=== PATIENT | male | born 1980 | race Caucasian/White ===

== ENCOUNTER 2018-12-23 15:00 | Emergency (ER) | payer OTHER ==
[2018-12-23 15:13] VITALS: BP 130/76
[2018-12-23] MEDS ORDERED: diphenhydrAMINE 50 MG/ML SDV IM ONE (15:49)
[2018-12-23] MEDS ORDERED: Ondansetron 4 MG Tab.DIS PO ONE (15:50)
[2018-12-23] MEDS ORDERED: Sucralfate Suspension 1 GM/10 ML Cup PO ONE (15:51)
--- NOTE | 2018-12-23 16:06 | EDM.PDOC ---
ED HPI GENERAL MEDICAL PROBLEM - General Chief Complaint: Headache Stated Complaint: migraine Time Seen by Provider: 12/23/18 15:27 Source of Information: Reports: Patient History Limitations: Reports: No Limitations - History of Present Illness INITIAL COMMENTS - FREE TEXT/NARRATIVE: Patient is a 38-year-old who presents to the ER with a 2 week history of migraine headaches patient was scheduled for Botox November 25 which he missed his appointment so he's been a month without the Botox and that has helped him in the past. This time he states that his migraine 05/05 but he does not appear to originate in significant distress. I went ahead and reviewed [place] and [place] drug use and both were negative this was done with Katelyn pollack Pharm.D. Onset: Gradual Duration: Week(s): (2 weeks), Getting Worse Location: Reports: Head, Abdomen (History of hiatal hernia patient given Carafate 1 g) Quality: Reports: Throbbing Severity: Moderate Improves with: Reports: Rest Worsens with: Reports: Movement Context: Reports: Activity Associated Symptoms: Reports: Headaches, Other (Patient has history of seizure disorder with anti-seizure medications valproic acid but has been off for a while secondary to secondary effects with Nexium) Posterior Occipital Headache Pain Score (Numeric/FACES): 9 - Related Data Allergies Allergy/AdvReac Type Severity Reaction Status Date / Time acetaminophen Allergy Nose Bleeds Verified 12/23/18 15:03 Benzoate Analogues Allergy Anaphylactic Verified 12/23/18 15:02 Shock ibuprofen Allergy Nose Bleeds Verified 12/23/18 15:03 ketorolac [From Toradol] Allergy Other Verified 12/26/16 15:20 lidocaine Allergy Anaphylactic Verified 12/23/18 15:02 Shock meperidine [From Demerol] Allergy Anaphylactic Verified 12/23/18 15:02 Shock contrast dye Allergy Other Uncoded 12/26/16 15:20 Home Meds: Home Meds Fludrocortisone [Florinef] 1 tab PO TID PRN 12/23/18 [History] Midodrine 5 mg PO DAILY 12/23/18 [History] Onabotulinumtoxina [Botox] 200 unit IJ Q90D 12/23/18 [History] Past Medical History Cardiovascular History: Reports: Afib, Other (See Below) Other Cardiovascular History: link monitor in chest? Musculoskeletal History: Reports: Back Pain, Chronic, Other (See Below) Other Musculoskeletal History: sciatica. bone spurs in back. meniscus tear in knee. bakers cyst to back of knees Neurological History: Reports: Seizure ED ROS GENERAL - Review of Systems Review Of Systems: See Below Constitutional: Reports: No Symptoms HEENT: Reports: Eye Pain Respiratory: Reports: No Symptoms Cardiovascular: Reports: No Symptoms Endocrine: Reports: No Symptoms GI/Abdominal: Reports: No Symptoms, Other (History of diaphragmatic hernia) Musculoskeletal: Reports: Neck Pain Skin: Reports: No Symptoms Neurological: Reports: No Symptoms Psychiatric: Reports: No Symptoms Hematologic/Lymphatic: Reports: No Symptoms Immunologic: Reports: No Symptoms - Physical Exam Exam: See Below Exam Limited By: No Limitations General Appearance: Alert, WD/WN, No Apparent Distress Ears: Normal External Exam, Normal Canal, Hearing Grossly Normal, Normal TMs Nose: Normal Inspection, Normal Mucosa, No Blood Throat/Mouth: Normal Inspection, Normal Lips, Normal Teeth, Normal Gums, Normal Oropharynx, Normal Voice, No Airway Compromise Head Exam: Atraumatic, Normocephalic Neck: Normal Inspection, Supple, Non-Tender, Full Range of Motion Respiratory/Chest: No Respiratory Distress, Lungs Clear, Normal Breath Sounds, No Accessory Muscle Use, Chest Non-Tender Cardiovascular: Normal Peripheral Pulses, Regular Rate, Rhythm, No Edema, No Gallop, No JVD, No Murmur, No Rub GI/Abdominal: Other (History of hiatal hernia) (Male) Exam: Deferred Rectal (Males) Exam: Deferred Neuro Exam (Abbreviated): Alert, Oriented, CN II-XII Intact, Normal Cognition, Normal Gait, Normal Reflexes, No Motor/Sensory Deficits, Other (Photophobia) Back Exam: Normal Inspection, Full Range of Motion, NT Extremities: Normal Inspection, Normal Range of Motion, Non-Tender, No Pedal Edema, Normal Capillary Refill Psychiatric: Normal Affect, Normal Mood Skin Exam: Warm, Dry, Intact, Normal Color, No Rash Course - Vital Signs Last Recorded V/S: Last Vital Signs Temp 98.3 F 12/23/18 15:10 Pulse 94 12/23/18 15:10 Resp 18 12/23/18 15:10 BP 130/76 12/23/18 15:10 Pulse Ox 95 12/23/18 15:10 - Orders/Labs/Meds Meds: Medications Discontinued Medications Generic Name Dose Route Start Last Admin Trade Name Marilu PRN Reason Stop Dose Admin Diphenhydramine HCl 50 mg 12/23/18 15:49 Benadryl IM 12/23/18 15:50 ONETIME ONE Ondansetron HCl 4 mg 12/23/18 15:50 Zofran Odt PO 12/23/18 15:51 ONETIME ONE Sucralfate 1 gm 12/23/18 15:51 Carafate PO 12/23/18 15:52 ONETIME ONE Departure - Departure Time of Disposition: 16:11 Disposition: Home, Self-Care 01 Condition: Fair Clinical Impression: Migraine headache, Migraine - Discharge Information *PRESCRIPTION DRUG MONITORING PROGRAM REVIEWED*: Yes *COPY OF PRESCRIPTION DRUG MONITORING REPORT IN PATIENT [place]: No Referrals: PCP,Unknown [Ordering Only Provider] - Additional Instructions: Patient was seen evaluated and will go ahead and treat with Benadryl and omeprazole plus Carafate in the attempt to diminish the migraines we will go ahead and send him home he is to follow-up with neurology for Botox treatment
== END 2018-12-23 17:20 | disposition home or self-care (01) ==
LOC: LL.ED 15:00
DX: G43.909 Migraine, unspecified, not intractable, without status migrainosus (principal); I48.91 Unspecified atrial fibrillation; Z88.6 Allergy status to analgesic agent; Z91.041 Radiographic dye allergy status; Z88.8 Allergy status to other drugs, medicaments and biological substances; Z79.899 Other long term (current) drug therapy
CPT/HCPCS: 96372; 99283; A9270-GY; J1200

== ENCOUNTER 2019-05-24 11:14 | Emergency (ER) | payer OTHER ==
[2019-05-24] MEDS ORDERED: Famotidine 20 MG/2 ML SDV IVPUSH ONE (11:18)
--- NOTE | 2019-05-24 11:20 | EDM.PDOC ---
ED HPI GENERAL MEDICAL PROBLEM - General Chief Complaint: Headache Stated Complaint: Headache, chest pressure, paresthesias Time Seen by Provider: 05/24/19 11:14 Source of Information: Reports: Patient, Old Records ([facility] EMR. No paper hospital chart available.) History Limitations: Reports: No Limitations - History of Present Illness INITIAL COMMENTS - FREE TEXT/NARRATIVE: The patient was brought to the emergency room via private automobile by a coworker for evaluation of multiple nonspecific complaints. The patient apparently woke up this morning at about 06:30 a.m. with sensation of fogginess , left-sided neck and jaw stiffness/paresthesias, right-sided frontal/ retroauricular and right occipital headache, which he rates at 9/10. Note distant history of previous CVA and migraine headaches as below. Patient also complains of 8/10 retrosternal chest pressure associated with some dyspnea with symptoms starting with the above symptoms. The patient denies any heart flutter , dizziness, orthostasis, orthopnea, diaphoresis, paresthesias, recent decreased exercise tolerance, or any other anginal-type symptoms. No history of recent visual changes, diplopia, change in mental status, or other change in neurological status. No recent history of abdominal pain, heartburn, nausea, diarrhea, melena, gross hematochezia, or any food intolerance, including fatty foods, etc.. He denies any gross hematuria, colic, or other UTI symptoms. The patient also denies any recent fever, cough, wheezing, dyspnea, etc.. Symptoms were refractory to 800 mg of ibuprofen taken at 08:30 a.m. this morning. Onset: Today, Sudden Onset Date: 05/24/19 Onset Time: 06:30 Duration: Constant, Getting Worse Location: Reports: Head, Face, Chest. Denies: Neck, Abdomen, Back, Upper Extremity, Left, Upper Extremity, Right, Lower Extremity, Left, Lower Extremity , Right Quality: Reports: Pressure, Same as Previous Episode, Throbbing Severity: Severe Improves with: Reports: None Worsens with: Reports: None Context: Reports: Other (As above). Denies: Sick Contact, Trauma Associated Symptoms: Reports: Chest Pain, Headaches. Denies: Confusion, Cough, Diaphoresis, Fever/Chills, Loss of Appetite, Malaise, Nausea/Vomiting, Seizure, Shortness of Breath, Syncope, Weakness Treatments [employer]: Reports: NSAIDS - Related Data Allergies Allergy/AdvReac Type Severity Reaction Status Date / Time Benzoate Analogues Allergy Anaphylactic Verified 05/24/19 12:07 Shock ketorolac [From Toradol] Allergy Anaphylactic Verified 05/24/19 12:07 Shock latex Allergy Burning Verified 05/24/19 12:08 lidocaine Allergy Anaphylactic Verified 05/24/19 12:07 Shock meperidine [From Demerol] Allergy Anaphylactic Verified 05/24/19 12:07 Shock acetaminophen AdvReac Nose Bleeds Verified 05/24/19 12:07 ibuprofen AdvReac Nose Bleeds Verified 05/24/19 12:07 contrast dye Allergy Anaphylactic Uncoded 05/24/19 12:07 Shock Home Meds: Home Meds Fludrocortisone [Florinef] 1 tab PO TID PRN 12/23/18 [History] Midodrine 5 mg PO DAILY PRN 12/23/18 [History] Onabotulinumtoxina [Botox] 200 unit IJ Q90D 12/23/18 [History] Ibuprofen 800 mg PO Q6HR PRN 05/24/19 [History] Methocarbamol [Robaxin-750] 4 - 6 tab PO ASDIRECTED 05/24/19 [History] Past Medical History HEENT History: Reports: Allergic Rhinitis, Impaired Vision, Other (See Below). Denies: Cataract, Glaucoma, Hard of Hearing, Macular Degeneration, Otitis Media , Retinal Detachment Other HEENT History: Patient wears glasses. Vocal cord polyps. Nasal fracture requiring reconstruction in 1995 as below. Cardiovascular History: Reports: Afib, Arrhythmia, Syncope, Other (See Below). Denies: Aneurysm, Blood Clots/VTE/DVT, CAD, Heart Murmur, High Cholesterol, Hypertension, [place], Pacemaker Other Cardiovascular History: Possible history of atrial fibrillation with ablation recommended? Note loop event monitor as below. Cardiac arrest secondary to Toradol exposure (?) with CPR required. Recurrent syncope of unknown etiology with negative workup as below, however possibly secondary to intermittent hypotension and/or cardiac arrhythmia. Respiratory History: Reports: Intubation, Previous, Pneumothorax, Other (See Below). Denies: Asthma, COPD, Intubation, Difficult, PE, Sleep Apnea, TB Other Respiratory History: Spontaneous right sided pneumothorax at about age 22 possibly secondary to his illness drug use with no chest tube required. Gastrointestinal History: Reports: Cholelithiasis, Colon Polyp, GERD, Hiatal Hernia, Other (See Below). Denies: Celiac Disease, Chronic Constipation, Chronic Diarrhea, Fecal Incontinence, Gastritis, GI Bleed, Hepatitis, Inflammatory Bowel Disease, Irritable Bowel Syndrome, Jaundice, Pancreatitis, PUD Other Gastrointestinal History: Multiple excisions of unknown type of colonic polyps last in 2012 as below. Genitourinary History: Reports: STD, Other (See Below). Denies: Acute Renal Failure, Chronic Renal Insuffiency, Renal Calculus, Retention, Urinary, Urinary Incontinence, UTI, Recurrent Other Genitourinary History: Chlamydia treatment in 2009. Musculoskeletal History: Reports: Back Pain, Chronic, Fracture, Osteoarthritis, Other (See Below). Denies: Arthritis, Gout, RA, SLE Other Musculoskeletal History: History of sciatica. Jimenez's cyst his knees with history of meniscal tears with no surgery to this point. Right wrist fracture at age 6. Neurological History: Reports: Concussion, CVA, Head Trauma, Seizure, Other ( See Below). Denies: Cerebral Aneurysms, MS, Neuropathy, Peripheral, Parkinson's , TIA, Vertigo Other Neuro History: History of multiple previous head concussions. 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 Refractory chronic migraine headaches. Psychiatric History: Reports: Addiction, Anxiety, Depression, Other (See Below) . Denies: Abuse, Victim of, ADD, ADHD, Psych Hospitalization(s), PTSD, Suicide Attempt, Suicidal Ideation Other Psychiatric History: History of illicit drug use, including cocaine use between ages 20 and 21 and 5 year history of intermittent methamphetamine use with last use of methamphetamine in 2012. No previous inpatient treatment and/ or IV drug use by patient history. Endocrine/Metabolic History: Reports: Other (See Below). Denies: Diabetes, Type I, Diabetes, Type II, Diabetes Mellitus, Type 3c, Hypothyroidism, IDDM Other Endocrine/Metabolic History: Hypo-and hyperglycemic episodes with no treatment required Hematologic History: Denies: Anemia, Blood Transfusion(s), Iron Deficiency Immunologic History: Reports: None. Denies: AIDS, HIV, SLE Oncologic (Cancer) History: Reports: None. Denies: Basal Cell Carcinoma, Colon , Hodgkin's Lymphoma, Leukemia, Lymphoma, Malignant Melanoma, Non-Hodgkin's Lymphoma, Squamous Cell Carcinoma Dermatologic History: Reports: None. Denies: Eczema, Psoriasis - Infectious Disease History Infectious Disease History: Reports: Other (See Below). Denies: C-Difficile, Chicken Pox, Measles, Meningitis, Mononucleosis, MRSA, Mumps, Pertussis ( Whooping Cough), Rheumatic Fever, Rubella, Scarlet Fever, Shingles, TB, VRE Other Infectious Disease History: Chlamydia as above. - Past Surgical History Head Surgeries/Procedures: Reports: None HEENT Surgical History: Reports: Naso-Sinus Surgery, Oral Surgery, Other (See Below). Denies: Adenoidectomy, Cataract Surgery, Detached Retina, Eye Surgery, Laser Surgery, LASIK, Myringotomy w Tube(s), Tonsillectomy Other HEENT Surgeries/Procedures: Nasal reconstruction in 1995. [place] teeth extraction times 4 in 1994. Cardiovascular Surgical History: Reports: Other (See Below). Denies: Varicose Other Cardiovascular Surgeries/Procedures: Loop event monitor from 2015 through October 2017. Respiratory Surgical History: Reports: None. Denies: Thoracentesis GI Surgical History: Reports: Cholecystectomy, Colonoscopy, EGD, Polypectomy, Other (See Below). Denies: Appendectomy, Hernia, Inguinal, Hernia Repair/Other Other GI Surgeries/Procedures: Multiple previous EGDs last in 2014. Multiple previous colonoscopies including polyp excisions with last excision in 2012. Laparoscopic cholecystectomy in 2010. Male Surgical History: Reports: Circumcision, Other (See Below). Denies: Vasectomy Other Male Surgeries/Procedures: Circumcision as an infant. Neurological Surgical History: Reports: None. Denies: C-Spine, Discectomy, Laminectomy, Lumbar Spine, Sacral Spine, Spinal Fusion, Thoracic Spine, Vertebroplasty Musculoskeletal Surgical History: Reports: Other (See Below). Denies: Arthroscopic Knee, Arthroscopic Procedure, Carpal Tunnel, Ganglion Cyst, Joint Replacement, ORIF, Shoulder Surgery Other Musculoskeletal Surgeries/Procedures:: Excision of benign tumor from the left hand in 2013. Oncologic Surgical History: Reports: None Dermatological Surgical History: Reports: None - Past Imaging History Past Imaging History: Reports: MRI (Knees bilaterally- records not available.), Stress Testing (Apparent negative exercise cardiac stress test 2 in 2009 and 2010.), Other (See Below) (Negative tilt table test and 2009 2012) Social & Family History - Tobacco Use Smoking Status *Q: Never Smoker Used Tobacco, but Quit: No Smoking Cessation Information Provided To Patient: No Second Hand Smoke Exposure: No Second Hand Smoke Education Provided: No - Caffeine Use Caffeine Use: Reports: Coffee (2 cups per day), Tea (1 glass per month). Denies : Energy Drinks, Soda - Alcohol Use Alcohol Use History: Yes Days Per Week of Alcohol Use: 0 Number of Drinks Per Day: 1 Number of Drinks Per Day Comment: Usually wine about 2 times per month. No previous DWIs, problems with alcohol abuse, etc. Total Drinks Per Week: 0 Alcohol Use in Last Twelve Months: Yes - Recreational Drug Use Recreational Drug Use: Yes Drug Use in Last 12 Months: No Recreational Drug Type: Reports: Amphetamines (Speed), Cocaine, Methamphetamine , Other (see below) (Illicit drug use as above). Denies: Heroin, Inhalants ( Glues, Solvents, Aerosols), LSD (Acid), Marijuana/Hashish, Morphine, Oxycodone - Living Situation & Occupation Living situation: Reports: Single, Alone Occupation: Employed ([employer] in [place] shop) ED ROS GENERAL - Review of Systems Review Of Systems: ROS reveals no pertinent complaints other than HPI. ED EXAM, NEURO - Physical Exam Exam: See Below Exam Limited By: No Limitations General Appearance: Alert, WD/WN, No Apparent Distress, Anxious (Moderate) Eye Exam: Bilateral Eye: EOMI, Normal Fundi, Normal Inspection (No nystagmus), PERRL Ears: Normal External Exam, Normal Canal, Hearing Grossly Normal, Normal TMs Nose: Normal Inspection, Normal Mucosa, No Blood Throat/Mouth: Normal Inspection, Normal Lips, Normal Teeth, Normal Gums, Normal Oropharynx, Normal Voice, No Airway Compromise. No: Dysphagia, Perioral Cyanosis Head Exam: Atraumatic, Normocephalic. No: Facial Swelling, Facial Tenderness, Sinus Tenderness Neck: Normal Inspection, Supple, Non-Tender, Full Range of Motion. No: Carotid Bruit, Lymphadenopathy (L), Lymphadenopathy (R), Thyromegaly Respiratory/Chest: No Respiratory Distress, Lungs Clear, Normal Breath Sounds, No Accessory Muscle Use, Chest Non-Tender. No: Pleural Rub, Retractions Cardiovascular: Normal Peripheral Pulses, Regular Rate, Rhythm, No Edema, No Gallop, No JVD, No Murmur, No Rub. No: Gallop/S3, Gallop/S4, Friction Rub GI/Abdominal: Normal Bowel Sounds, Soft, Non-Tender, No Organomegaly, No Distention, No Abnormal Bruit, No Mass. No: Guarding (Male) Exam: Deferred Rectal (Males) Exam: Deferred Neurological: Alert, Normal Mood/Affect, Normal Dorsiflexion, CN II-XII Intact, Normal Plantar Flexion, Normal Gait, Normal Reflexes (Negative Babinski's, finger to nose, and pronator rotation tests. No evidence of facial paresis, tongue deviation, orthostasis, etc.. Excellent reverse thought processes.), No Motor/Sensory Deficits, Oriented x 3 Back Exam: Normal Inspection, Full Range of Motion. No: CVA Tenderness (L), CVA Tenderness (R), Muscle Spasm Extremities: Normal Inspection, Normal Range of Motion, Non-Tender, No Pedal Edema, Normal Capillary Refill. No: Alia's Sign Psychiatric: Anxious (Moderate), Depressed Mood (Moderate), Other (No suicidal ideation, etc.). No: Tearful Skin Exam: Warm, Dry, Intact, Normal Color, No Rash, Tattoo(s) (Multiple). No: Diaphoretic, Wound/Incision EKG INTERPRETATION EKG Date: 05/24/19 Time: 11:29 Rhythm: Other (Mild sinus bradycardia) Rate (Beats/Min): 58 [place]: Normal (Neutral) P-Wave: Present QRS: Normal (2.09 seconds) ST-T: Normal (Nonspecific ST changes) QT: Normal WI/PQ Interval: 0.15 seconds representing a resolved/improved short WI interval with no delta waves noted. Pulmonary hypertension by EKG Comparison: Change From Previous EKG (As above since last EKG on 12/26/16) EKG Interpretation Comments: 1. No acute ischemic changes 2. History of short WI interval 3. Pulmonary hypertension by EKG Course - Vital Signs Last Recorded V/S: Last Vital Signs Temp 36.6 C 05/24/19 13:27 Pulse 77 05/24/19 13:27 Resp 17 05/24/19 13:27 BP 126/85 05/24/19 13:27 Pulse Ox 100 05/24/19 13:27 Vital Signs - 24 hr 05/24/19 05/24/19 05/24/19 11:15 11:24 11:39 Temperature [ 36.4 C 36.4 C Temporal] Pulse, 74 70 73 Peripheral [ Right Pulse Oximetry] Respiratory 16 14 14 Rate Blood Pressure 138/110 H 119/81 115/83 [Left Upper Arm ] O2 Sat by Pulse 94 L 100 100 Oximetry 05/24/19 05/24/19 05/24/19 11:54 12:09 12:25 Temperature [ 36.4 C Temporal] Pulse, 59 L 63 54 L Peripheral [ Right Pulse Oximetry] Respiratory 12 12 10 L Rate Blood Pressure 125/86 117/85 123/86 [Left Upper Arm ] O2 Sat by Pulse 100 100 100 Oximetry 05/24/19 05/24/19 12:54 13:27 Temperature [ 36.6 C Temporal] Pulse, 60 77 Peripheral [ Right Pulse Oximetry] Respiratory 12 17 Rate Blood Pressure 123/86 126/85 [Left Upper Arm ] O2 Sat by Pulse 100 100 Oximetry - Orders/Labs/Meds Orders: Active Orders 24 hr Category Date Time Status Blood Glucose Check, Bedside [RC] STAT Care 05/24/19 11:18 Active Cardiac Monitoring [RC] STAT Care 05/24/19 11:18 Active EKG Documentation Completion [RC] ASDIRECTED Care 05/24/19 11:18 Active NIH Stroke Scale [RC] ASDIRECTED Care 05/24/19 11:18 Active Oxygen Therapy, ED [RC] PRN Care 05/24/19 11:18 Active Peripheral IV Care [RC] . DIRECTED Care 05/24/19 11:18 Active Pulse Oximetry [RC] CONTINUOUS Care 05/24/19 11:18 Active Up With Assistance [RC] ASDIRECTED Care 05/24/19 11:18 Active Vital Signs [RC] PFP Care 05/24/19 11:18 Active Nothing per Oral Now Diet [DIET] Diet 05/24/19 Breakfast Active Chest 1V Frontal [CR] Stat Exams 05/24/19 11:18 Taken Head wo Cont [CT] Stat Exams 05/24/19 11:18 Taken CULTURE URINE [RM] Routine Lab 05/24/19 11:41 Ordered DRUG SCREEN, URINE [URCHEM] Stat Lab 05/24/19 11:41 Ordered PROLACTIN [REF] Stat Lab 05/24/19 11:25 Received URINALYSIS W/MICROSCOPIC [UA W/MICROSCOPIC] [URIN] Lab 05/24/19 11:41 Ordered Routine Sodium Chloride 0.9% [Saline Flush] Med 05/24/19 11:18 Active 10 ml FLUSH ASDIRECTED PRN Obtain Past Medical Record [OM.PC] Stat Oth 05/24/19 11:18 Active Peripheral IV Insertion Adult [OM.PC] Stat Ot 05/24/19 11:18 Ordered Resuscitation Status Stat Resus Stat 05/24/19 11:18 Ordered Medication Orders Sodium Chloride (Saline Flush) 10 ml FLUSH ASDIRECTED PRN PRN Reason: Keep Vein Open Last Admin: 05/24/19 13:36 Dose: 10 ml Admin: 05/24/19 13:33 Dose: 10 ml Admin: 05/24/19 13:32 Dose: 10 ml Admin: 05/24/19 11:34 Dose: 10 ml Labs: Laboratory Tests 05/24/19 05/24/19 05/24/19 Range/Units 11:18 11:25 11:25 WBC 3.8 L (4.0-10.2) K/uL RBC 4.03 L (4.33-5.41) M/uL Hgb 13.0 L (13.1-16.8) g/dL Hct 39.0 (39.0-49.0) % MCV 96.8 (84.0-98.0) fL MCH 32.3 (28.2-33.3) pg MCHC 33.3 (31.7-36.0) g/dL RDW 12.5 (11.2-14.1) % Plt Count 213 (150-350) K/uL Neut % (Auto) 45.2 (45.0-80.0) % Lymph % (Auto) 37.2 (10.0-50.0) % [place] % (Auto) 13.3 (2.0-14.0) % Eos % (Auto) 3.2 (0.0-5.0) % Baso % (Auto) 1.1 (0.0-2.0) % Neut # (Auto) 1.70 (1.40-7.00) K/uL Lymph # (Auto) 1.40 (0.50-3.50) K/uL [place] # (Auto) 0.50 (0.00-1.00) K/uL Eos # (Auto) 0.12 (0.00-0.50) K/uL Baso # (Auto) 0.04 (0.00-0.20) K/uL PT 10.4 (9.5-12.0) SEC INR 1.0 APTT 30.1 (21.0-31.3) SEC D-Dimer, Quantitative (0-400) ng/mL Sodium (136-145) mmol/L Potassium (3.5-5.1) mmol/L Chloride (98-107) mmol/L Carbon Dioxide (21.0-32.0) mmol/L BUN (7-18) mg/dL Creatinine (0.51-1.17) mg/dL Est Cr Clr Drug Dosing Estimated GFR (MDRD) mL/min Glucose (74-106) mg/dL Lactic Acid 1.0 (0.4-2.0) mmol/L Uric Acid (2.6-7.2) mg/dL Calcium (8.5-10.1) mg/dL Magnesium (1.8-2.4) mg/dL Total Bilirubin (0.2-1.0) mg/dL AST (15-37) U/L ALT (12-78) U/L Alkaline Phosphatase (46-116) IU/L Creatine Kinase (26-308) U/L Creatine Kinase Index (0.0-2.5) % CK-MB (CK-2) (0.00-3.60) ng/mL Troponin I (0.000-0.056) ng/mL NT-Pro-B Natriuret Pep (0-125) pg/mL Total Protein (6.4-8.2) g/dL Albumin (3.4-5.0) g/dL TSH, Ultra Sensitive (0.358-3.740) mIU/mL 05/24/19 05/24/19 Range/Units 11:25 11:25 WBC (4.0-10.2) K/uL RBC (4.33-5.41) M/uL Hgb (13.1-16.8) g/dL Hct (39.0-49.0) % MCV (84.0-98.0) fL MCH (28.2-33.3) pg MCHC (31.7-36.0) g/dL RDW (11.2-14.1) % Plt Count (150-350) K/uL Neut % (Auto) (45.0-80.0) % Lymph % (Auto) (10.0-50.0) % [place] % (Auto) (2.0-14.0) % Eos % (Auto) (0.0-5.0) % Baso % (Auto) (0.0-2.0) % Neut # (Auto) (1.40-7.00) K/uL Lymph # (Auto) (0.50-3.50) K/uL [place] # (Auto) (0.00-1.00) K/uL Eos # (Auto) (0.00-0.50) K/uL Baso # (Auto) (0.00-0.20) K/uL PT (9.5-12.0) SEC INR APTT (21.0-31.3) SEC D-Dimer, Quantitative 271 (0-400) ng/mL Sodium 139 (136-145) mmol/L Potassium 3.9 (3.5-5.1) mmol/L Chloride 103 (98-107) mmol/L Carbon Dioxide 32.5 H (21.0-32.0) mmol/L BUN 21 H (7-18) mg/dL Creatinine 0.82 (0.51-1.17) mg/dL Est Cr Clr Drug Dosing TNP Estimated GFR (MDRD) > 60 mL/min Glucose 90 (74-106) mg/dL Lactic Acid (0.4-2.0) mmol/L Uric Acid 4.4 (2.6-7.2) mg/dL Calcium 8.5 (8.5-10.1) mg/dL Magnesium 1.9 (1.8-2.4) mg/dL Total Bilirubin 1.0 (0.2-1.0) mg/dL AST 15 (15-37) U/L ALT 30 (12-78) U/L Alkaline Phosphatase 42 L (46-116) IU/L Creatine Kinase 138 (26-308) U/L Creatine Kinase Index 1.1 (0.0-2.5) % CK-MB (CK-2) 1.50 (0.00-3.60) ng/mL Troponin I 0.000 (0.000-0.056) ng/mL NT-Pro-B Natriuret Pep 6 (0-125) pg/mL Total Protein 7.3 (6.4-8.2) g/dL Albumin 3.9 (3.4-5.0) g/dL TSH, Ultra Sensitive 0.541 (0.358-3.740) mIU/mL Stat Accu-Chek of 118 mg percent. Meds: Medications Generic Name Dose Route Start Last Admin Trade Name Freq PRN Reason Stop Dose Admin Sodium Chloride 10 ml 05/24/19 11:18 05/24/19 13:36 Saline Flush FLUSH 10 ml ASDIRECTED PRN Administration Keep Vein Open Discontinued Medications Generic Name Dose Route Start Last Admin Trade Name Freq PRN Reason Stop Dose Admin Diphenhydramine HCl 50 mg 05/24/19 13:23 05/24/19 13:32 Benadryl IVPUSH 05/24/19 13:24 50 mg ONETIME ONE Administration Famotidine 40 mg 05/24/19 11:18 05/24/19 11:33 Pepcid IVPUSH 05/24/19 11:19 40 mg ONETIME ONE Administration Lorazepam 1 mg 05/24/19 13:23 05/24/19 13:32 Ativan IVPUSH 05/24/19 13:24 1 mg ONETIME ONE Administration Metoclopramide HCl 10 mg 05/24/19 13:24 05/24/19 13:32 Reglan IVPUSH 05/24/19 13:25 10 mg ONETIME ONE Administration - Radiology Interpretation Free Text/Narrative:: Plasma Center Technician shows normal sinus rhythm with heart rate in the 60s to 80s with no ectopy or arrhythmia. Chest x-ray, portable, shows evidence of borderline pulmonary obstructive disease with no cardiomegaly, CHF, pulmonary infiltrates, pneumothorax, etc. Telephone consultation at 11:55 AM with the radiology department at [facility]. Preliminary verbal report of noncontrast CT scan of the head was negative for acute changes. CT Results Date: 05/24/19 CT Results Time: 11:55 Departure - Departure Time of Disposition: 14:10 Disposition: Home, Self-Care 01 Condition: Good Clinical Impression: Chest pain, Migraine, Mixed anxiety depressive disorder, Epilepsy - Discharge Information *PRESCRIPTION DRUG MONITORING PROGRAM REVIEWED*: Not Applicable *COPY OF PRESCRIPTION DRUG MONITORING REPORT IN PATIENT [place]: Not Applicable Instructions: Migraine Headache, [id number], Nonspecific Chest Pain, Easy-to- Read, Angina Pectoris, [id number] Referrals: PCP,Unknown [Primary Care Provider] - Forms: ED Department Discharge, ED Return to Work/School Form Additional Instructions: 1. Contact your regular physician JARED as discussed for immediate recommended evaluation of your chest pain, headache, etc. as discussed. 2. Tylenol and/or OTC ibuprofen should be dosed by the patient's weight as needed./directed. (Tylenol at 10 mg/kg every 4 hours. Ibuprofen at 5-10 mg/kg every 6 hours). These medications may be staggered for 48-72 hours only, which essentially means that pain medication is being given every 2 hours. Today's weight is about 3. Ice packs to head and neck, dark and quiet room, etc. as directed until headache resolves. 4. Discuss possible additional preventative medications for your headaches with your regular provider. Consider OTC magnesium oxide 400 mg every day as headache prevention with diarrhea precautions with this medication as directed. Never initiate medications on your own, however, prior to discussing this with your regular provider. In addition, discuss possible reinitiation of your antidepressant medication, which would also be beneficial as migraine headache prevention. 5. Sedation precautions with no driving, etc. for 18 hours because of emergency room medications. 6. Work excuse- See Form 7. Immediately after this visit verify that your cellular telephone's voicemail has been activated and is empty. Also verify that your home telephone 's answering machine is operating properly and has space to receive messages. Note that it is sometimes necessary for us to be able to contact you at a later date to discuss your medical care. 8. Please remember that we are ALWAYS here for you and want to answer any questions you may have. Feel free to call the hospital any time and we call you back JARED. 9. Maintained 25-50 percent maximum exercise restriction until your cardiac status has been determined. You may not return to work until released by your regular provider, etc. - Problem List & Annotations (1) Migraine headache SNOMED Code(s): 57057925 Code(s): G43.909 - MIGRAINE, UNSP, NOT INTRACTABLE, WITHOUT STATUS MIGRAINOSUS Status: Acute Priority: High Current Visit: Yes Onset Date: 05/24/19 Annotation/Comment:: Secondary to patient's symptoms and previous medical history as above/below a stroke code was called in this facility by this provider shortly after his arrival to the emergency room. Symptoms much improved with treatment as above. Patient refused transfer to [facility] for possible MRI with distant history of CVA as above. No direct evidence of CVA today, however with probable symptoms more related to migraine equivalent and no current neurological deficits, etc.. Note nonspecific leukopenia. Qualifiers: Migraine type: without aura Status migrainosus presence: without status migrainosus Intractability: not intractable Qualified Code(s): G43.009 - Migraine without aura, not intractable, without status migrainosus (2) Chest pain SNOMED Code(s): 35059135 Code(s): R07.9 - CHEST PAIN, UNSPECIFIED Status: Acute Priority: High Current Visit: Yes Onset Date: 05/24/19 Annotation/Comment:: Note strong cardiac history as above with patient refusing admission and/or transfer to [facility] for further workup. Work excuse provided with close follow-up by regular providers as per discharge instructions. The risks and benefits of going home were extensively discussed, including the risk of , etc.. His symptoms were improved prior to discharge. The blood pressures were significantly improved prior to discharge without treatment. Qualifiers: Chest pain type: precordial pain Qualified Code(s): R07.2 - Precordial pain (3) Epilepsy SNOMED Code(s): 53994469 Code(s): G40.909 - EPILEPSY, UNSP, NOT INTRACTABLE, WITHOUT STATUS EPILEPTICUS Status: Chronic Priority: Medium Current Visit: Yes Annotation/Comment:: Note previous history of epilepsy of unknown type with discontinuation of his Depakote about 6 months ago by his history. No recent seizure activity since medication discontinuation, however. 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 Close follow-up by regular provider as per discharge instructions. Strong anxiety depression component to today's symptoms. Emotional support provided. Note previous history of illicit drug use. Patient unable to provide us with ordered urine specimen for drug screen, etc. - Problem List Review Problem List Initiated/Reviewed/Updated: Yes - My Orders Last 24 Hours: My Active Orders 05/24/19 11:18 Blood Glucose Check, Bedside [RC] STAT Cardiac Monitoring [RC] STAT EKG Documentation Completion [RC] ASDIRECTED NIH Stroke Scale [RC] ASDIRECTED Oxygen Therapy, ED [RC] PRN Peripheral IV Care [RC] . DIRECTED Pulse Oximetry [RC] CONTINUOUS Up With Assistance [RC] ASDIRECTED Vital Signs [RC] PFP Chest 1V Frontal [CR] Stat Head wo Cont [CT] Stat Sodium Chloride 0.9% [Saline Flush] 10 ml FLUSH ASDIRECTED PRN Obtain Past Medical Record [OM.PC] Stat Peripheral IV Insertion Adult [OM.PC] Stat Resuscitation Status Stat 05/24/19 11:25 PROLACTIN [REF] Stat 05/24/19 11:41 CULTURE URINE [RM] Routine DRUG SCREEN, URINE [URCHEM] Stat URINALYSIS W/MICROSCOPIC [UA W/MICROSCOPIC] [URIN] Routine 05/24/19 Breakfast Nothing per Oral Now Diet [DIET] - Assessment/Plan Last 24 Hours: My Active Orders 05/24/19 11:18 Blood Glucose Check, Bedside [RC] STAT Cardiac Monitoring [RC] STAT EKG Documentation Completion [RC] ASDIRECTED NIH Stroke Scale [RC] ASDIRECTED Oxygen Therapy, ED [RC] PRN Peripheral IV Care [RC] . DIRECTED Pulse Oximetry [RC] CONTINUOUS Up With Assistance [RC] ASDIRECTED Vital Signs [RC] PFP Chest 1V Frontal [CR] Stat Head wo Cont [CT] Stat Sodium Chloride 0.9% [Saline Flush] 10 ml FLUSH ASDIRECTED PRN Obtain Past Medical Record [OM.PC] Stat Peripheral IV Insertion Adult [OM.PC] Stat Resuscitation Status Stat 05/24/19 11:25 PROLACTIN [REF] Stat 05/24/19 11:41 CULTURE URINE [RM] Routine DRUG SCREEN, URINE [URCHEM] Stat URINALYSIS W/MICROSCOPIC [UA W/MICROSCOPIC] [URIN] Routine 05/24/19 Breakfast Nothing per Oral Now Diet [DIET] Assessment:: As above Plan: As above. Extensive precautions were given to the patient, who is in agreement with the treatment plan. Coworker did drive him home. See Patient Instructions for further treatment and plan.
[2019-05-24] MEDS: Sodium Chloride 0.9% 10 ML Syringe FLUSH PRN ×4 (11:34→13:36)
[2019-05-24 12:01] LABS: CHLORIDE,CL 103 mmol/L (98-107); SODIUM,NA 139 mmol/L (136-145)
[2019-05-24] MEDS ORDERED: diphenhydrAMINE 50 MG/ML SDV IVPUSH ONE (13:23)
[2019-05-24] MEDS ORDERED: LORazepam 2 MG/ML SDV IVPUSH ONE (13:23)
[2019-05-24] MEDS ORDERED: Metoclopramide 10 MG/2 ML SDV IVPUSH ONE (13:24)
[2019-05-24 15:54] VITALS: BP 126/85
== END 2019-05-24 14:00 | disposition home or self-care (01) ==
LOC: LL.ED 11:14
DX: G43.909 Migraine, unspecified, not intractable, without status migrainosus (principal); F41.8 Other specified anxiety disorders; G40.909 Epilepsy, unspecified, not intractable, without status epilepticus; I48.91 Unspecified atrial fibrillation; Z91.040 Latex allergy status; Z88.8 Allergy status to other drugs, medicaments and biological substances; Z88.6 Allergy status to analgesic agent; Z88.5 Allergy status to narcotic agent; Z91.041 Radiographic dye allergy status
CPT/HCPCS: 36415; 70450; 71045; 80053; 82550; 82553; 83605; 83735; 83880; 84146; 84443; 84484; 84550; 85025; 85379; 85610; 85730; 93005; 96374; 96375; 99285-25; J1200; J2060; J2765; J3490